=== PATIENT | male | born 1990 | race Caucasian/White ===

== ENCOUNTER 2017-01-01 11:03 | Emergency (ER) ==
[2017-01-01 11:12] VITALS: BP 136/95
[2017-01-01] MEDS ORDERED: DERMABOND TOP ONE (11:32)
[2017-01-01] MEDS ORDERED: DERMABOND ONE (11:33)
--- NOTE | 2017-01-01 11:45 | PROVIDER DOCUMENTATION ---
HPI-Rash/Wound/ReCheck - General Chief Complaint: Extremity Injury Stated Complaint: FINGER INJURY Time Seen by Provider: 01/01/17 11:22 Source: patient, family Allergies/Adverse Reactions: Allergies Allergy/AdvReac Type Severity Reaction Status Date / Time No Known Allergies Allergy Verified 01/01/17 11:12 Home Medications: Home Medication List Medication Instructions Recorded Confirmed Last Taken Type Acyclovir 800 mg PO 5XDAY #35 tablet 01/01/17 Unknown Rx - History of Present Illness-Dermatology Nature of Presenting Problem: 26 year old WM presents with 2 complaints. 1. right 2nd finger was caught between a door, resulting a skin tear/ laceration. Onset just prior to arrival. 2. pt c/o shingles rash to right flank region. pt reports he has been getting shingles every other month for 4-5 years. he recently ran out of acyclovir. Location: reports: hands, torso Quality: reports: burning (torso), painful (finger) Review of Systems - Adult - REVIEW OF SYSTEMS - ADULT Constitutional: reports: no symptoms reported. denies: chills, fever, fatique Eyes: reports: no symptoms reported. denies: discharge, blurred vision, double vision, redness Ears, Nose, Mouth & Throat: reports: no symptoms reported. denies: ear discharge, ear pain, nose pain, loose teeth, throat pain, throat swelling Cardiovascular: reports: no symptoms reported. denies: chest pain, palpitations , syncope Respiratory: reports: no symptoms reported. denies: chronic cough, cough, shortness of breath, wheezing Gastrointestinal: reports: no symptoms reported. denies: abdominal pain, diarrhea, nausea, vomiting Genitourinary: reports: no symptoms reported. denies: dysuria, hematuria, urgency Musculoskeletal: reports: no symptoms reported. denies: bone pain, joint pain, joint swelling, neck pain Integumentary: reports: see HPI, rash (right flank region), other (right 2nd finger with laceration). denies: hives, hair loss, itching, mole changes, nail changes, skin sores/ulcer Neurological: reports: no symptoms reported. denies: ataxia, dizziness/vertigo , syncope, tremors Psychiatric: reports: no symptoms reported. denies: anxiety, anti-depressant use Endocrine: reports: no symptoms reported Hematologic/Lymphatic: reports: no symptoms reported Allergic/Immunologic: reports: no symptoms reported All Other Systems: Reviewed and Negative Past History - Adult - PAST MEDICAL HISTORY-ADULT Review of Records: reports: Old Records Reviewed, Nursing Assessment Review, Medications Reviewed, Social history reviewed & non-contributory. Major Childhood Illnesses: reports: denies history Cardiovascular: reports: denies history Respiratory: reports: denies history Gastrointestinal: reports: denies history Obstetrical/Gynecological: reports: denies history Genitourinary: reports: denies history Musculoskeletal: reports: other (left ankle pain) Neurological: reports: denies history Psychiatric: reports: depression Endocrine/Immune: reports: denies history Other Conditions: reports: denies history - PRIOR SURGERIES/PROCEDURES Surgical/Procedure History: reports: none - IMMUNIZATION STATUS Childhood Immunizations: See Nurse Assessment Flu Vaccine: See Nurse Assessment - FAMILY HISTORY Family History: reviewed, not pertinent - SOCIAL HISTORY Smoking: cigarettes Provider spent 3-5 mins advising pt. on dangers of tobacco.: Discussed manners to quit use, and f/u contacts for add'l counseling. Substance Use: none/never Alcohol Use Frequency: never Physical Exam-General - PHYSICAL EXAM-ADULT Initial Vital Signs Reviewed: Yes - CONSTITUTIONAL General Appearance: appears well, alert, no apparent distress - EYES Eyes: pink conjunctivae - HEAD, EARS, NOSE, MOUTH & THROAT HENMT: normocephalic/atraumatic, moist mucous membranes, normal ENT inspection - NECK Neck: non-tender, full range of motion, supple - RESPIRATORY Respiratory: chest non-tender, lungs clear, normal breath sounds, no pleuratic chest pain, no respiratory distress, no accessory muscle use - CARDIOVASCULAR Cardiovascular: normal peripheral pulses, regular rate, rhythm, no edema - CHEST (BREASTS) Chest/Breast: no tenderness - GASTROINTESTINAL (ABDOMEN) Abdominal Exam: normal bowel sounds, non tender, soft - GENITOURINARY Male Genitalia: deferred Rectal Exam: deferred Hemoccult Exam: deferred - LYMPHATIC Lymphatic: no adenopathy - MUSCULOSKELETAL Back Exam: normal inspection, no CVA tenderness, no vertebral tenderness, other (right flank region with a patch of vesicles, surrounding erythema). negative: CVA tenderness, swelling, vertebral tenderness Extremity: normal range of motion, non-tender, normal gait, normal inspection, no pedal edema, no calf tenderness, normal capillary refill Peripheral Pulses: radial (R): 3+, radial (L): 3+, dorsalis-pedis (R): 3+, dorsalis-pedis (L): 3+ - SKIN Integumentary: zoster-like rash (right flank region) - NEUROLOGIC Neurologic: grossly normal, no motor/sensory deficits - PSYCHIATRIC Psych/Mental Status: normal mood/affect, normal thought content, normal thought process, oriented x 3 Progress - PLAN OF CARE/RESULTS Progress/Plan/Lab Results: Orders Category Date Time Status Cyanoacrylate Tissue Adhesive [Dermabond] Med 01/01/17 11:33 Discontinued 1 each .ROUTE .STK-MED ONE Cyanoacrylate Tissue Adhesive [Dermabond] Med 01/01/17 11:32 Discontinued 1 each TOP NOW ONE Vital Signs - 24 hr 01/01/17 11:09 Temperature 98.5 F Pulse Rate 83 Respiratory 18 Rate Blood Pressure 136/95 O2 Sat by Pulse 98 Oximetry Procedures - LACERATION/WOUND REPAIR/FB Left Finger Wound Location: Other: left anterior 2nd finger Wound's Depth, Shape: superficial, flap Wound Explored/Foreign Body: clean, no foreign body found Irrigated with Saline?: Yes Prepped with: Olgaiclens Wound Debrided: minimal Wound Repaired with: Dermabond Departure - Departure Time of Disposition Order: 11:43 DIAGNOSIS: Laceration Shingles Qualifiers: Herpes zoster complications: without complications Qualified Code(s): B02.9 - Zoster without complications Disposition: HOME 01 Certified Medical Emergency: Emergent Condition: Stable Additional Instructions: Follow up at the [facility] as needed. The glue will fall off, do not apply oil based products to the wound. [facility] for HIV testing. ED Follow Up Instructions: You have been treated by a care provider in the Emergency Department. These instructions are being provided to you so you can have an understanding of how to care for yourself upon discharge. Upon discharge from the Emergency Department, you are responsible for making arrangements for follow-up care by a physician of your choice. Take all prescribed medications as directed. Return to the Emergency Department immediately for any new or worsening symptoms. You may call the Physician Referral phone number at [phone] to obtain a list of Physicians who are taking new patients. Prescriptions: Acyclovir 800 mg PO 5XDAY #35 tablet Referrals: None,PCP [Primary Care Provider] - [facility] [NON-STAFF] - Forms: Return to School/Parent Work Instructions: Shingles, Laceration Care, Adult, Acyclovir tablets or capsules Attestation - Physician/ ELEANOR Attestation Patient care was provided by Advanced Practice Provider:: Yes Advanced Practice Provider:: Cait Villanueva Advanced Practice Provider documentation review:: The Mid-level provider documentation, treatment plan and medical decision making was reviewed by the physician who agrees with all treatment and medical decision making by the MLP.
== END 2017-01-01 11:55 | disposition home or self-care (01) ==
LOC: P.ED 11:03
DX: S61.210A Laceration without foreign body of right index finger without damage to nail, initial encounter (principal); B02.9 Zoster without complications; M79.644 Pain in right finger(s); R21 Rash and other nonspecific skin eruption; L53.9 Erythematous condition, unspecified; F17.210 Nicotine dependence, cigarettes, uncomplicated; Z71.6 Tobacco abuse counseling; W23.0XXA Caught, crushed, jammed, or pinched between moving objects, initial encounter
CPT/HCPCS: 99282